=== PATIENT | female | born 1995 | race African-American/Black ===

== ENCOUNTER 2024-08-03 13:24 | Emergency (ER) | payer OTHER ==
[2024-08-03 13:31] VITALS: BP 115/70; PULSE 73; RESP 18; TEMP 98.5; BMI 30.4
[2024-08-03] MEDS ORDERED: ACETAMINOPHEN 500 MG TABLET (FP) ONE (15:24)
[2024-08-03] MEDS ORDERED: LIDOCAINE 4% PATCH TP ONE (15:24)
[2024-08-03] MEDS ORDERED: CYCLOBENZAPRINE HCL 10 MG TABLET (FP) ONE (15:24)
[2024-08-03] MEDS: CYCLOBENZAPRINE HCL 10 MG TABLET (FP) PO ONE (15:30)
[2024-08-03] MEDS: ACETAMINOPHEN 500 MG TABLET (FP) PO ONE (15:30)
[2024-08-03] MEDS: LIDOCAINE 4% PATCH TP ONE (15:30)
[2024-08-03] MEDS ORDERED: LIDOCAINE PATCH REMOVAL MC SCH (22:00)
== END 2024-08-03 16:03 | disposition home or self-care (01) ==
LOC: JERFT 13:24
DX: M54.6 Pain in thoracic spine (principal)
CPT/HCPCS: 71046-TC-FY; 99283-25